=== PATIENT | male | born 1985 | race Hispanic/Latino ===

== ENCOUNTER 2020-03-19 07:19 | Observation (INO) | payer SELFPAY ==
--- NOTE | 2020-03-19 07:39 | RAD ---
PORTABLE CHEST: Date: 03/19/2020 PROVIDED CLINICAL HISTORY: Chest pain. FINDINGS: Comparison with 05/12/2020. Cardiac and mediastinal silhouette is unchanged in appearance. No focal consolidation, pleural fluid, or pneumothorax apparent. IMPRESSION: No evidence for an acute cardiopulmonary process. POS: BRUNO
[2020-03-19] MEDS ORDERED: Ondansetron PF 4 MG/2 ML Vial ONE (07:52)
[2020-03-19] MEDS ORDERED: Morphine 4 MG/ML VIAL ONE (07:52)
[2020-03-19 08:30] LABS: #Lymphocytes 2.1 thou/uL (1.20-3.40); #Monocytes 0.9 thou/uL (0.11-0.59); #Neutrophils 12.5 thou/uL (1.40-6.50); %Basophils 0.2 % (0.0-1.0); %Eosinophils 0.2 % (0.0-10.0); %Lymphocytes 13.7 % (21.0-51.0); %Monocytes 5.7 % (0.0-10.0); %Neutrophils 80.1 % (42.0-75.0); Hemoglobin 16.5 g/dL (14.0-18.0); Mean Corpuscular HGB CONC 34.9 g/dL (32.0-36.0); Mean Corpuscular Hemoglobin 30.6 pg (27.0-31.0); Mean Corpuscular Volume 87.6 fL (78.0-98.0); Mean Platelet Volume 9.1 fL (7.4-10.4); Platelet Count 314 thou/uL (130-400); RBC Distribution Width 11.1 % (11.5-14.5); Red Blood Cell (RBC) Count 5.39 mill/uL (4.70-6.10); White Blood Cell (WBC) Count 15.6 thou/uL (4.8-10.8)
[2020-03-19 08:56] LABS: ALT (SGPT) 44 U/L (8-55); AST (SGOT) 35 U/L (5-34); Albumin 5.3 g/dL (3.5-5.0); Alkaline Phosphatase 117 U/L (40-110); Anion Gap 23 mmol/L (10-20); BUN (Urea Nitrogen) 8 mg/dL (8.9-20.6); Bilirubin, Total 1.3 mg/dL (0.2-1.2); Calc. Creatinine Clearance 0 mL/min (70-130); Calcium 11.1 mg/dL (7.8-10.44); Carbon Dioxide 18 mmol/L (22-29); Chloride 102 mmol/L (98-107); Globulin 3.4 g/dL (2.4-3.5); Glucose 127 mg/dL (70-105); Lipase 30 U/L (8-78); Potassium 3.3 mmol/L (3.5-5.1); Protein, Total 8.7 g/dL (6.0-8.3); Sodium 140 mmol/L (136-145)
[2020-03-19 09:16] LABS: CKMB 2.7 ng/mL (0-6.6)
[2020-03-19] MEDS ORDERED: Aspirin Chewable 81 MG TAB ONE (09:24)
[2020-03-19] MEDS ORDERED: Nitroglycerin 2% Ointment 1 INCH/1 GM Packet ONE (09:24)
[2020-03-19] MEDS ORDERED: Metoprolol Tartrate 5 MG/5 ML VIAL ONE (09:24)
--- NOTE | 2020-03-19 10:04 | ULT ---
RIGHT UPPER QUADRANT ULTRASOUND: Date: 03/19/2020 PROVIDED CLINICAL HISTORY: Abdominal pain. FINDINGS: The pancreas is obscured. The liver demonstrates changes of fatty infiltration without mass or intrah epatic biliary ductal dilatation evident. The common duct is not dilated. The gallbladder demonstrate s no stones, wall thickening, or pericholecystic fluid. Right kidney demonstrates no hydronephrosis o r mass. IMPRESSION: Changes of fatty liver without evidence for acute process. POS: BRUNO
[2020-03-19] MEDS ORDERED: Nitroglycerin 0.4 MG TAB (25 Tab Bottle) SL PRN (11:03)
[2020-03-19] MEDS ORDERED: Ondansetron PF 4 MG/2 ML Vial IVP PRN (11:03)
[2020-03-19] MEDS ORDERED: Mag-Al Plus 1200 MG/1200 MG/120 MG/30 ML UDCUP PO PRN (11:03)
--- NOTE | 2020-03-19 11:13 | PDOC.HHP ---
Hospitalist HPI - History of Present Illness Chest pain, heartburn History of Present Illness: 34-year-old gentleman with a history of hypertension, noncompliance with medication presents to the emergency department with a complaint of anterior chest pain, located in the left chest, occurred at rest, nonradiating, maximum intensity 8/10, intermittent, associated with diaphoresis, nausea, dry heaving and dizziness, not related to exertion. Patient also reports heartburn which has been present since yesterday. He denied any cough or shortness of breath. Patient denied any fever. He stated his chest pain was partially relieved with nitroglycerin, metoprolol and IV morphine given in the emergency department. He was still experiencing heartburn when I saw him for examination in the ED. his initial troponin is mildly elevated to 0.05. EKG demonstrated sinus tachycardia with LVH, no significant ischemic changes. His initial systolic blood pressure was 173, diastolic of 122. His systolic blood pressure improved to the 150s after nitroglycerin metoprolol. Patient has some leukocytosis. Blood chemistry also some metabolic acid acidosis. Patient is hospitalized for further management. Hospitalist ROS - Review of Systems Constitutional: denies: fever Eyes: denies: vision change ENT: denies: nose discharge, throat pain Respiratory: denies: cough, shortness of breath, wheezing Cardiovascular: denies: orthopnea - Medication Medications: Except as documented, all other systems reviewed and negative. Hospitalist History - Past Medical History Cardiac: reports: HTN Gastrointestinal: reports: GERD Other Medical History: History of diverticulitis. - Past Surgical History Past Surgical History: reports: Tonsillectomy Other Surgical History: Ear membrane patch - Family History Family History: reports: cardiac disorder (Paternal Grandfather) - Social History Smoking Status: Current every day smoker Alcohol: reports: Occassional Drugs: reports: marijuana Living Situation: With Family - Exam General Appearance: NAD, awake alert Eye: PERRL, anicteric sclera ENT: normocephalic atraumatic, moist mucosa Neck: supple, no JVD, no thyromegaly Heart: RRR, no murmur, normal peripheral pulses Respiratory: CTAB, no wheezes, no rales, no ronchi Gastrointestinal: soft, non-tender, non-distended, normal bowel sounds Extremities: no cyanosis, no edema Skin: normal turgor, no rashes Neurological: cranial nerve grossly intact, no weakness, no focal deficits Musculoskeletal: normal tone, normal strength Psychiatric: normal affect, normal behavior, A&O x 3 Hospitalist Results - Labs Result Diagrams: 03/19/20 08:11 03/19/20 08:11 Lab results: WBC 15.6 thou/uL (4.8-10.8) H 03/19/20 08:11 Hgb 16.5 g/dL (14.0-18.0) 03/19/20 08:11 Hct 47.2 % (42.0-52.0) 03/19/20 08:11 MCV 87.6 fL (78.0-98.0) 03/19/20 08:11 Plt Count 314 thou/uL (130-400) 03/19/20 08:11 Neutrophils % 80.1 % (42.0-75.0) H 03/19/20 08:11 Sodium 140 mmol/L (136-145) 03/19/20 08:11 Potassium 3.3 mmol/L (3.5-5.1) L 03/19/20 08:11 Chloride 102 mmol/L (98-107) 03/19/20 08:11 Carbon Dioxide 18 mmol/L (22-29) L 03/19/20 08:11 BUN 8 mg/dL (8.9-20.6) L 03/19/20 08:11 Creatinine 1.22 mg/dL (0.7-1.3) 03/19/20 08:11 Glucose 127 mg/dL (70-105) H 03/19/20 08:11 Calcium 11.1 mg/dL (7.8-10.44) H 03/19/20 08:11 Total Bilirubin 1.3 mg/dL (0.2-1.2) H 03/19/20 08:11 AST 35 U/L (5-34) H 03/19/20 08:11 ALT 44 U/L (8-55) 03/19/20 08:11 Alkaline Phosphatase 117 U/L (40-110) H 03/19/20 08:11 CK-MB (CK-2) 2.7 ng/mL (0-6.6) 03/19/20 08:11 Troponin I 0.051 ng/mL (< 0.028) H 03/19/20 08:11 Serum Total Protein 8.7 g/dL (6.0-8.3) H 03/19/20 08:11 Albumin 5.3 g/dL (3.5-5.0) H 03/19/20 08:11 Lipase 30 U/L (8-78) 03/19/20 08:11 - EKG Interpretation EKG: Sinus tachycardia, LVH. - Radiology Interpretation Chest x-ray Status: report reviewed by me (No acute disease.) Hospitalist H&P A/P - Problem (1) Chest pain Code(s): R07.9 - CHEST PAIN, UNSPECIFIED Status: Acute (2) Elevated troponin Code(s): R77.8 - OTHER SPECIFIED ABNORMALITIES OF PLASMA PROTEINS Status: Acute (3) Malignant hypertension Code(s): I10 - ESSENTIAL (PRIMARY) HYPERTENSION Status: Acute (4) GERD (gastroesophageal reflux disease) Code(s): K21.9 - GASTRO-ESOPHAGEAL REFLUX DISEASE WITHOUT ESOPHAGITIS Status: Acute (5) Metabolic acidosis Code(s): E87.2 - ACIDOSIS Status: Acute (6) Leukocytosis Code(s): D72.829 - ELEVATED WHITE BLOOD CELL COUNT, UNSPECIFIED Status: Acute (7) Obesity Code(s): E66.9 - OBESITY, UNSPECIFIED Status: Acute - Plan Plan: I suspect metabolic acidosis leukocytosis secondary to dehydration. Placed under observation Telemetry Trend troponin Will order metoprolol, aspirin, nitroglycerin. Will cover with full dose Lovenox as we trend troponin. Obtain echocardiogram Cardiology consult Aggressive blood pressure control. We will start oral amlodipine. Patient also started on metoprolol. Target systolic blood pressure of less than 140. Labetalol as needed for BP spikes. IV Protonix and Maalox for GERD. Hydrate with normal saline. Monitor CBC and BMP.
[2020-03-19] MEDS ORDERED: Labetalol HCl 100 MG/20 ML VIAL SLOW IVP PRN (11:24)
[2020-03-19] MEDS ORDERED: Amlodipine 10 MG TAB PO SCH (11:30)
[2020-03-19] MEDS ORDERED: Pantoprazole 40 MG VIAL IVP SCH (11:30)
[2020-03-19] MEDS ORDERED: Amlodipine 5 MG TAB ONE (11:44)
[2020-03-19] MEDS ORDERED: Pantoprazole 40 MG VIAL ONE (11:44)
[2020-03-19] MEDS: 1/2 NS w/KCL 20 mEq 1,000 ML IV SCH (11:52)
[2020-03-19 12:19] LABS: Troponin I 0.074 ng/mL (< 0.028)
[2020-03-19 13:29] VITALS: BMI 47.5
[2020-03-19 15:20] LABS: Troponin I 0.075 ng/mL (< 0.028)
[2020-03-19] MEDS ORDERED: FLU VACC QS2020-21(6MOS UP)/PF 60 MCG/0.5 ML SYRINGE IM ONE (17:00)
[2020-03-19 17:20] LABS: SARS-CoV-2 PCR by NAA Not Detected (NotDetected)
[2020-03-19] MEDS: Pantoprazole 40 MG VIAL IVP SCH (21:50)
[2020-03-19] MEDS: Enoxaparin Sodium 120 MG/0.8 ML SYRINGE SC SCH (21:50)
[2020-03-19] MEDS: Metoprolol Tartrate 25 MG TAB PO SCH (21:50)
[2020-03-20] MEDS: 1/2 NS w/KCL 20 mEq 1,000 ML IV SCH ×2 (03:57→15:29)
[2020-03-20 04:46] LABS: #Basophils 0.1 thou/uL (0.0-0.2); #Eosinphils 0.2 thou/uL (0.0-0.7); #Lymphocytes 4.1 thou/uL (1.20-3.40); #Monocytes 0.7 thou/uL (0.11-0.59); #Neutrophils 4.5 thou/uL (1.40-6.50); %Basophils 0.6 % (0.0-1.0); %Eosinophils 2.1 % (0.0-10.0); %Lymphocytes 42.8 % (21.0-51.0); %Monocytes 7.4 % (0.0-10.0); Hemoglobin 14.4 g/dL (14.0-18.0); Mean Corpuscular HGB CONC 34.4 g/dL (32.0-36.0); Mean Corpuscular Hemoglobin 30.3 pg (27.0-31.0); Mean Corpuscular Volume 88.3 fL (78.0-98.0); Mean Platelet Volume 8.4 fL (7.4-10.4); Platelet Count 249 thou/uL (130-400); Red Blood Cell (RBC) Count 4.75 mill/uL (4.70-6.10); White Blood Cell (WBC) Count 9.5 thou/uL (4.8-10.8)
[2020-03-20 05:20] LABS: Anion Gap 13 mmol/L (10-20); BUN (Urea Nitrogen) 10 mg/dL (8.9-20.6); Calc. Creatinine Clearance 211 mL/min (70-130); Calcium 8.6 mg/dL (7.8-10.44); Carbon Dioxide 24 mmol/L (22-29); Chloride 105 mmol/L (98-107); Glucose 83 mg/dL (70-105); Potassium 3.2 mmol/L (3.5-5.1); Sodium 139 mmol/L (136-145)
[2020-03-20] MEDS: Pantoprazole 40 MG VIAL IVP SCH ×2 (08:22→20:42)
[2020-03-20] MEDS: Aspirin Chewable 81 MG TAB PO SCH (08:22)
[2020-03-20] MEDS: Metoprolol Tartrate 25 MG TAB PO SCH ×2 (08:22→20:41)
[2020-03-20] MEDS: Amlodipine 10 MG TAB PO SCH (08:22)
[2020-03-20] MEDS ORDERED: Enoxaparin Sodium 40 MG/0.4 ML SYRINGE SC SCH ×2 (09:00→21:00)
[2020-03-20] MEDS ORDERED: Regadenoson 0.4 MG/5 ML SYRINGE ONE (12:57)
[2020-03-20] MEDS: Enoxaparin Sodium 120 MG/0.8 ML SYRINGE SC SCH (14:29)
--- NOTE | 2020-03-20 14:36 | PDOC.HOSPP ---
- Subjective Encounter Date: 03/20/20 Encounter Time: 11:45 Subjective: no chest pain or palp or sob now took a shower this am had episode of left sided chest pain yesterday while he was having alcoholic drinks (around 5 shots of whiskey and energy drinks) with friends. no prior cardiac w/u, no covid symptoms as such - Objective Vital Signs & Weight: Vital Signs (12 hours) Temp Pulse Resp BP Pulse Ox 03/20/20 11:38 98.1 F 70 16 121/73 98 03/20/20 07:52 98.1 F 71 16 137/97 H 98 03/20/20 05:19 98 03/20/20 04:00 96.7 F L 65 14 139/80 98 Weight Weight 259 lb 11.2 oz I&O: 03/19/20 03/20/20 03/21/20 06:59 06:59 06:59 Intake Total 2340 Balance 2340 Result Diagrams: 03/20/20 04:17 03/20/20 04:17 Hospitalist ROS - Medication Medications: Active Medications Generic Name Dose Route Start Last Admin Trade Name Freq PRN Reason Stop Dose Admin Amlodipine Besylate 10 mg 03/20/20 09:00 03/20/20 08:22 Amlodipine 10 Mg Tab PO 10 mg DAILY ROB Administration Aspirin 81 mg 03/20/20 09:00 03/20/20 08:22 Aspirin Chewable 81 Mg Tab PO 81 mg DAILY ROB Administration Potassium Chloride/Sodium Chloride 1,000 mls @ 75 mls/hr 03/19/20 11:30 03/20/20 03:57 1/2 Ns W/Kcl 20 Meq IV 1,000 mls .[id number] ROB Administration Labetalol HCl 20 mg 03/19/20 11:24 03/19/20 15:59 Labetalol Hcl 100 Mg/20 Ml Vial SLOW IVP 20 mg Q4H PRN Administration SBP>160 and or DBP>110 Metoprolol Tartrate 25 mg 03/19/20 21:00 03/20/20 08:22 Metoprolol Tartrate 25 Mg Tab PO 25 mg BID ROB Administration Pantoprazole Sodium 40 mg 03/19/20 21:00 03/20/20 08:22 Pantoprazole 40 Mg Vial IVP 40 mg Q12HR ROB Administration Sodium Chloride 10 ml 03/19/20 21:00 03/20/20 08:22 Flush - Normal Saline 10 Ml Syringe IVF 10 ml Q12HR ROB Administration - Exam General Appearance: awake alert Eye: PERRL, anicteric sclera ENT: no oropharyngeal lesions, moist mucosa Neck: supple, no JVD Heart: RRR, no murmur Respiratory: no wheezes, no rales, rhonchi Gastrointestinal: soft, non-tender, non-distended, normal bowel sounds Extremities: no cyanosis, no edema Neurological: cranial nerve grossly intact, no focal deficits Psychiatric: normal affect, A&O x 3 Hosp A/P (1) Chest pain Code(s): R07.9 - CHEST PAIN, UNSPECIFIED Status: Acute (2) HTN (hypertension) Code(s): I10 - ESSENTIAL (PRIMARY) HYPERTENSION Status: Chronic Qualifiers: Hypertension type: essential hypertension Qualified Code(s): I10 - Essential (primary) hypertension (3) Tobacco use Code(s): Z72.0 - TOBACCO USE Status: Chronic (4) GERD (gastroesophageal reflux disease) Code(s): K21.9 - GASTRO-ESOPHAGEAL REFLUX DISEASE WITHOUT ESOPHAGITIS Status: Acute Qualifiers: Esophagitis presence: esophagitis presence not specified Qualified Code(s): K21.9 - Gastro-esophageal reflux disease without esophagitis (5) Obesity Code(s): E66.9 - OBESITY, UNSPECIFIED Status: Chronic Qualifiers: Obesity classification: adult class 3 (BMI >= 40) Body mass index: BMI 45.0-49.9 - Plan likely had gerd symptoms, is obese, uncontrolled htn on arrival, thc and tobacco usage, plus had heavy alc use on the day symptoms came on cardio consultation for either stress test or cath no ekg changes to suggest stemi or st-t wave changes now hemostable continue norvasc, lopressor, dc full dose lovenox echo shows normal ef with no sig wall motion changes.
[2020-03-21] MEDS ORDERED: D5 1/2 NS w/20 mEq KCL 0 ML ONE (04:45)
--- NOTE | 2020-03-21 07:30 | CON ---
DATE OF CONSULTATION: 03/20/2020 REASON FOR CONSULTATION: Chest pain. Please note, dictation was placed on 03/19/2020. Dr. Madrigal himself was not notified, therefore delaying consult. HISTORY OF PRESENT ILLNESS: Mr. Almaraz is a 34-year-old gentleman with past history of hypertension who recently had an episode of chest pain. The patient has had significant stressors. He presented to the emergency room with a markedly elevated blood pressure with a diastolic of 120. Troponin was slightly elevated. He is currently chest pain-free. He has no previous history of underlying coronary artery disease. PAST MEDICAL HISTORY: Hypertension, noncompliance with medications, previously wearing a patch of unknown type, otherwise none. SURGICAL HISTORY: Tonsillectomy. FAMILY HISTORY: Negative for CAD. SOCIAL HISTORY: Positive tobacco use. REVIEW OF SYSTEMS: A 10-point system is reviewed as above and otherwise negative. PHYSICAL EXAMINATION: GENERAL: The patient is a pleasant, 34-year-old male who is in no acute distress. The patient appears their stated age. VITAL SIGNS: Blood pressure 131/83, pulse 70, temperature afebrile. NEUROLOGIC: The patient is alert and oriented x3 with no focal neurologic deficits. HEENT: Sclerae without icterus. Mouth has moist mucous membranes with normal pallor. NECK: No JVD. Carotid upstroke brisk. No bruits bilaterally. LUNGS: Clear to auscultation with unlabored respirations. BACK: No scoliosis or kyphosis. CARDIAC: Regular rate and rhythm with normal S1 and S2. No S3 or S4 noted. No significant rubs, murmurs, thrills, or gallops noted throughout the precordium. PMI is not displaced. There is no parasternal heave. ABDOMEN: Soft, nontender, nondistended. No peritoneal signs present. No hepatosplenomegaly. No abnormal striae. EXTREMITIES: 2+ femoral and 2+ dorsalis pedis pulses. No cyanosis, clubbing, or edema. SKIN: No gross abnormalities. Insert a new patient. PERTINENT LABORATORY DATA: Hemoglobin 14.4, hematocrit 41.9. EKG shows normal sinus rhythm, normal EKG. Echo Doppler showed normal LVEF. IMPRESSION: 1. Chest pain. 2. Hypertension. 3. Tobacco abuse. RECOMMENDATIONS: Mr. Almaraz's HEART score is estimated at 3 with a risk of MACE of 0.9 to 1.7. I would recommend a treadmill stress test, but the patient's diastolic blood pressure continues to be elevated. My concern would be his blood pressure increase thereby having to stop the treadmill. We therefore recommended treadmill stress test to assess for any areas of ischemia. Continue to monitor his blood pressure closely and make adjustments in his blood pressure appropriately. He is currently on amlodipine in addition to aspirin. His Lovenox has been discontinued. Job ID: [id number]
--- NOTE | 2020-03-21 09:39 | NM ---
Radionucleotide stress and rest myocardial perfusion scan with CT attenuation correction and SPECT im aging Left ventricular wall motion evaluation and ejection fraction HISTORY: Chest pain. Hypertension. FINDINGS: Modified John protocol. Total test time 2:00. Heart rate max 109 bpm. There is heterogeneous uptake of radiotracer throughout the left ventricular myocardium with evidence of some breast attenuation. No focal perfusion defect or reversibility. QGS analysis of gated SPECT images shows global hypokinesis without focal wall motion abnormality. Ej ection fraction calculated at 46%. IMPRESSION : No evidence of ischemia. Borderline LVEF 46%.
[2020-03-21] MEDS: 1/2 NS w/KCL 20 mEq 1,000 ML IV SCH ×2 (10:29→10:30)
[2020-03-21] MEDS: Pantoprazole 40 MG VIAL IVP SCH (10:29)
[2020-03-21] MEDS: Amlodipine 10 MG TAB PO SCH (11:05)
[2020-03-21] MEDS: Aspirin Chewable 81 MG TAB PO SCH (11:05)
[2020-03-21] MEDS: Metoprolol Tartrate 25 MG TAB PO SCH (11:06)
[2020-03-21 13:13] VITALS: BP 120/78; TEMP 98.5
--- NOTE | 2020-03-22 13:08 | DIS ---
DATE OF ADMISSION: 03/19/2020 DATE OF DISCHARGE: 03/21/2020 DISCHARGE DISPOSITION: To home. PRIMARY DISCHARGE DIAGNOSIS: Chest pain, which is noncardiac. SECONDARY DISCHARGE DIAGNOSES: 1. Hypertension. 2. Likely gastroesophageal reflux disease. 3. Tobacco use. 4. Binge drinking on weekends. 5. Obesity. PROCEDURES DONE DURING HOSPITALIZATION: Chest x-ray done showed no acute cardiopulmonary process. Right upper quadrant ultrasound done showed changes of fatty liver. Echo with 2D Doppler showed ejection fraction of 55% to 60%. Nuclear stress test done showed no signs of ischemia. H and H 14 and 41, platelet count 249, MCV 88. BUN 8, creatinine 1.2 on admission. COVID-19 PCR was not detected. DISCHARGE MEDICATIONS: 1. Lisinopril 10 mg p.o. daily. 2. Lopressor 25 mg twice daily. 3. Norvasc 10 mg daily. 4. Protonix 40 mg daily. ALLERGIES: NO KNOWN DRUG ALLERGIES. DISCHARGE PLAN: The patient to follow up with his primary care physician at [facility] in 1 week. BRIEF COURSE DURING HOSPITALIZATION: The patient initially came in with complaints of retrosternal chest pain. He also admitted to drinking five shots of whiskey with energy drinks prior to arrival. The patient was admitted to telemetry under observation. He had moderate dehydration on arrival and was gently hydrated. His ACS evidence-based protocol followed. Echo with 2D Doppler done showed ejection fraction of 55% to 60%. There were no signs of reversible ischemia on nuclear stress test. He remained chest pain free after hospitalization. The patient was counseled regarding complete cessation of binge drinking on the weekends. His BMI is 47 and was encouraged to lose weight with exercise and healthy eating. He was given a prescription for Protonix and the medications were optimized for his hypertension. Please note, I have seen and examined the patient on the day of discharge. Job ID: [id number]
== END 2020-03-21 12:42 | disposition home or self-care (01) ==
LOC: ERS 07:19 → ERHOLD 10:47 → 2NO 13:16
PROVIDERS: ADMIT Internal Medicine; ATTEND Internal Medicine
DX: R07.89 Other chest pain (principal); I10 Essential (primary) hypertension; F17.210 Nicotine dependence, cigarettes, uncomplicated; E66.9 Obesity, unspecified; K21.9 Gastro-esophageal reflux disease without esophagitis; R77.8 Other specified abnormalities of plasma proteins; E87.2 Acidosis; D72.829 Elevated white blood cell count, unspecified; F12.10 Cannabis abuse, uncomplicated; Z68.42 Body mass index [BMI] 45.0-49.9, adult; Z79.899 Other long term (current) drug therapy; Z91.14 Patient's other noncompliance with medication regimen; Z20.822 Contact with and (suspected) exposure to COVID-19
CPT/HCPCS: 36415; 71045; 76705; 78452; 80048; 80053; 82553; 83690; 84484; 85025; 85379; 87635; 93005; 93017; 93306; 94760; 96372; 96374; 96375; 96376; A9500; C9113; G0378; J1650; J2270; J2405; J2785; J3480; U0003; U0005

== ENCOUNTER 2020-11-14 08:13 | Emergency (ER) | payer OTHER, SELFPAY ==
[2020-11-14] MEDS ORDERED: Ondansetron PF 4 MG/2 ML Vial ONE (09:04)
[2020-11-14] MEDS ORDERED: Morphine 4 MG/ML VIAL ONE (09:04)
[2020-11-14 09:21] LABS: #Basophils 0.1 thou/uL (0.0-0.2); #Eosinphils 0.1 thou/uL (0.0-0.7); #Lymphocytes 3.1 thou/uL (1.20-3.40); #Monocytes 0.8 thou/uL (0.11-0.59); %Basophils 0.9 % (0.0-1.0); %Neutrophils 55.1 % (42.0-75.0); Hemoglobin 14.9 g/dL (14.0-18.0); Mean Corpuscular HGB CONC 35.1 g/dL (32.0-36.0); Mean Corpuscular Hemoglobin 31.1 pg (27.0-31.0); Mean Corpuscular Volume 88.4 fL (78.0-98.0); Mean Platelet Volume 8.1 fL (7.4-10.4); Platelet Count 266 thou/uL (130-400); RBC Distribution Width 11.3 % (11.5-14.5)
[2020-11-14 09:51] LABS: ALT (SGPT) 25 U/L (8-55); AST (SGOT) 30 U/L (5-34); Albumin 4.3 g/dL (3.5-5.0); Alkaline Phosphatase 104 U/L (40-110); Anion Gap 13 mmol/L (10-20); BUN (Urea Nitrogen) 11 mg/dL (8.9-20.6); Bilirubin, Total 1.4 mg/dL (0.2-1.2); Calc. Creatinine Clearance 0 mL/min (70-130); Calcium 9.6 mg/dL (7.8-10.44); Carbon Dioxide 25 mmol/L (22-29); Chloride 103 mmol/L (98-107); Globulin 3.3 g/dL (2.4-3.5); Glucose 88 mg/dL (70-105); Lipase 21 U/L (8-78); Potassium 3.2 mmol/L (3.5-5.1); Protein, Total 7.6 g/dL (6.0-8.3); Sodium 138 mmol/L (136-145)
[2020-11-14 10:48] LABS: Bilirubin Negative (Negative); Blood, Urine Negative (Negative); Clarity Clear (Clear); Glucose, Urine (Dipstick) Normal (Negative); Ketone, Urine Negative (Negative); Leukocyte Negative Leu/uL (Negative); Nitrite Negative (Negative); Protein, Urine (Dipstick) Negative (Neg-Trace); Specific Gravity, Urine 1.032 (1.002-1.036); Urobilinogen Normal mg/dL (Less than 2)
[2020-11-14] MEDS ORDERED: Iopamidol-370 76% 500 ML 1 ML ONE (11:41)
== END 2020-11-14 11:46 | disposition home or self-care (01) ==
LOC: ERS 08:13
DX: R10.31 Right lower quadrant pain (principal); R10.32 Left lower quadrant pain; R10.12 Left upper quadrant pain; I10 Essential (primary) hypertension; F17.210 Nicotine dependence, cigarettes, uncomplicated; Z79.899 Other long term (current) drug therapy
CPT/HCPCS: 74177; 80053; 81003; 83690; 85025; 96374; 96375; J2270; J2405; Q9967

== ENCOUNTER 2021-12-12 17:02 | Emergency (ER) | payer SELFPAY ==
[2021-12-12 17:26] LABS: #Basophils 0.1 thou/uL (0.0-0.2); #Eosinphils 0.2 thou/uL (0.0-0.7); #Lymphocytes 2.8 thou/uL (1.20-3.40); #Monocytes 0.5 thou/uL (0.11-0.59); #Neutrophils 4.1 thou/uL (1.40-6.50); %Basophils 0.7 % (0.0-1.0); %Eosinophils 2.8 % (0.0-10.0); %Lymphocytes 36.5 % (21.0-51.0); %Monocytes 6.9 % (0.0-10.0); %Neutrophils 53.1 % (42.0-75.0); Hemoglobin 14.7 g/dL (14.0-18.0); Mean Corpuscular HGB CONC 34.8 g/dL (32.0-36.0); Mean Corpuscular Hemoglobin 31.8 pg (27.0-31.0); Mean Corpuscular Volume 91.2 fL (78.0-98.0); Mean Platelet Volume 8.3 fL (7.4-10.4); Platelet Count 262 thou/uL (130-400); RBC Distribution Width 11.1 % (11.5-14.5); Red Blood Cell (RBC) Count 4.64 mill/uL (4.70-6.10); White Blood Cell (WBC) Count 7.7 thou/uL (4.8-10.8)
[2021-12-12 17:48] LABS: ALT (SGPT) 26 U/L (8-55); AST (SGOT) 16 U/L (5-34); Alkaline Phosphatase 88 U/L (40-110); Anion Gap 11 mmol/L (10-20); BUN (Urea Nitrogen) 7 mg/dL (8.9-20.6); Bilirubin, Total 0.3 mg/dL (0.2-1.2); Calc. Creatinine Clearance 0 mL/min (70-130); Calcium 8.6 mg/dL (7.8-10.44); Carbon Dioxide 22 mmol/L (22-29); Chloride 108 mmol/L (98-107); Estimated GFR 122; Globulin 2.8 g/dL (2.4-3.5); Glucose 146 mg/dL (70-105); Potassium 3.9 mmol/L (3.5-5.1); Protein, Total 6.8 g/dL (6.0-8.3); Sodium 137 mmol/L (136-145)
[2021-12-12 19:00] LABS: Bilirubin Negative (Negative); Blood, Urine Negative (Negative); Clarity Extra Turbid (Clear); Glucose, Urine (Dipstick) Normal (Negative); Ketone, Urine Negative (Negative); Leukocyte Negative Leu/uL (Negative); Nitrite Negative (Negative); Protein, Urine (Dipstick) 10 mg/dL (Neg-Trace); Specific Gravity, Urine 1.018 (1.002-1.036); Urobilinogen Normal mg/dL (Less than 2)
== END 2021-12-12 19:46 | disposition home or self-care (01) ==
LOC: ERS 17:02
DX: R53.1 Weakness (principal); I10 Essential (primary) hypertension; K21.9 Gastro-esophageal reflux disease without esophagitis; F17.210 Nicotine dependence, cigarettes, uncomplicated; Z86.73 Personal history of transient ischemic attack (TIA), and cerebral infarction without residual deficits; Z79.899 Other long term (current) drug therapy
CPT/HCPCS: 36415; 36416; 80053; 81003; 85025; 94760; 99284

== ENCOUNTER 2023-12-03 13:17 | Emergency (ER) | payer SELFPAY ==
[2023-12-03] MEDS ORDERED: Ketorolac Tromethamine 30 MG (1 mL) VIAL ONE (14:02)
[2023-12-03] MEDS ORDERED: Vancomycin (BATCH) 2.5 GM in Premix 1 BAG IVPB SCH (14:15)
[2023-12-03] MEDS ORDERED: Sodium Chloride 0.9% 100 ML ONE (14:16)
[2023-12-03] MEDS ORDERED: Cefepime 2 GM VIAL ONE (14:16)
[2023-12-03 14:38] LABS: #Basophils 0.04 10x3/uL (0.0-0.2); %Basophils 0.4 % (0.0-1.0); %Eosinophils 1.1 % (0.0-10.0); %Lymphocytes 17.5 % (21.0-51.0); %Monocytes 6.5 % (0.0-10.0); %Neutrophils 74.2 % (42.0-75.0); Hematocrit 38.2 % (42.0-52.0); Hemoglobin 12.8 g/dL (14.0-18.0); Mean Corpuscular HGB CONC 33.5 g/dL (32.0-36.0); Mean Corpuscular Hemoglobin 28.4 pg (27.0-31.0); Mean Corpuscular Volume 84.7 fL (78.0-98.0); Mean Platelet Volume 10.3 fL (7.4-10.4); Platelet Count 331 10x3/uL (130-400); RBC Distribution Width 12.8 % (11.5-14.5); Red Blood Cell (RBC) Count 4.51 mill/uL (4.70-6.10)
[2023-12-03 14:57] LABS: CRP,High Sensitivity (Inhouse) 4.25 mg/dL (< or = 0.5)
[2023-12-03 14:58] LABS: ALT (SGPT) 13 U/L (8-55); AST (SGOT) 13 U/L (5-34); Albumin 3.7 g/dL (3.5-5.0); Alkaline Phosphatase 92 U/L (40-110); Anion Gap 11 mmol/L (10-20); BUN (Urea Nitrogen) 8 mg/dL (8.9-20.6); Bilirubin, Total 0.5 mg/dL (0.2-1.2); Calc. Creatinine Clearance 0 mL/min (70-130); Calcium 9.3 mg/dL (7.8-10.44); Carbon Dioxide 26 mmol/L (22-29); Chloride 107 mmol/L (98-107); Estimated GFR 120; Globulin 3.8 g/dL (2.4-3.5); Glucose 104 mg/dL (70-105); Potassium 3.6 mmol/L (3.5-5.1); Protein, Total 7.5 g/dL (6.0-8.3); Sodium 140 mmol/L (136-145)
== END 2023-12-03 18:10 | disposition home or self-care (01) ==
LOC: ERS 13:17
DX: M70.32 Other bursitis of elbow, left elbow (principal); I10 Essential (primary) hypertension; F17.210 Nicotine dependence, cigarettes, uncomplicated; Z55.6 Problems related to health literacy; Z79.899 Other long term (current) drug therapy
CPT/HCPCS: 36416; 80053; 83605; 85025; 86141; 87040; 96365; 96366; 96367; 96375; J0692; J1885; J3370

== ENCOUNTER 2025-02-22 12:10 | Emergency (ER) | payer SELFPAY ==
[2025-02-22 14:45] LABS: Bacteria/HPF None Seen HPF (None Seen); CAUTI Indications for Culture Dysuria,urgency,freq; Glucose, Urine (Dipstick) Normal (Negative); Leukocyte Negative Leu/uL (Negative); Protein, Urine (Dipstick) 30 mg/dL (Neg-Trace); RBC/HPF 0-3 HPF (0-3); Specific Gravity, Urine 1.013 (1.002-1.036); WBC/HPF 0-3 HPF (0-3)
[2025-02-22 14:47] LABS: Urine Culture Reflex No No
[2025-02-22 15:24] LABS: #Basophils 0.05 10x3/uL (0.0-0.2); #Eosinophils 0.06 10x3/uL (0.0-0.7); #Monocytes 0.88 10x3/uL (0.11-0.59); #Neutrophils 3.79 10x3/uL (1.40-6.50); %Basophils 0.7 % (0.0-1.0); %Eosinophils 0.8 % (0.0-10.0); %Lymphocytes 37.0 % (21.0-51.0); %Monocytes 11.6 % (0.0-10.0); %Neutrophils 49.8 % (42.0-75.0); Hematocrit 41.4 % (42.0-52.0); Hemoglobin 13.9 g/dL (14.0-18.0); Mean Corpuscular Hemoglobin 26.9 pg (27.0-31.0); Mean Corpuscular Volume 80.1 fL (78.0-98.0); Platelet Count 340 10x3/uL (130-400); Red Blood Cell (RBC) Count 5.17 mill/uL (4.70-6.10); White Blood Cell (WBC) Count 7.60 10x3/uL (4.8-10.8)
[2025-02-22] MEDS ORDERED: cefTRIAXone (ROCEPHIN) 1 GM VIAL ONE (16:48)
== END 2025-02-22 17:28 | disposition home or self-care (01) ==
LOC: ERS 12:10
DX: N39.0 Urinary tract infection, site not specified (principal); F15.10 Other stimulant abuse, uncomplicated; R33.9 Retention of urine, unspecified; R20.2 Paresthesia of skin; I10 Essential (primary) hypertension; F17.210 Nicotine dependence, cigarettes, uncomplicated
CPT/HCPCS: 51798; 74176; 81001; 85025; 86141; 93005; 96365; J0696